=== PATIENT | female | born 1970 | race Caucasian/White ===

== ENCOUNTER → 2024-05-28 07:29 | Outpatient (REF) | payer OTHER, SELFPAY | LOC: EMG 07:29 | PROVIDERS: ATTENDING PHYSICIAN Student in an Organized Health Care Education/Training Program | DX: R20.9 Unspecified disturbances of skin sensation (principal); R20.0 Anesthesia of skin; G62.9 Polyneuropathy, unspecified | CPT/HCPCS: 95886; 95911 ==

== ENCOUNTER → 2024-07-13 07:46 | Outpatient (REF) | payer OTHER, SELFPAY | LOC: MRI 3T 07:46 | PROVIDERS: ATTENDING PHYSICIAN Student in an Organized Health Care Education/Training Program | DX: G62.9 Polyneuropathy, unspecified (principal); Z82.0 Family history of epilepsy and other diseases of the nervous system | CPT/HCPCS: 70553; A9575 ==

== ENCOUNTER → 2024-08-06 08:34 | Outpatient (REF) | payer OTHER, SELFPAY | LOC: MRI 3T 08:34 | PROVIDERS: ATTENDING PHYSICIAN Student in an Organized Health Care Education/Training Program | DX: G62.9 Polyneuropathy, unspecified (principal); Z82.0 Family history of epilepsy and other diseases of the nervous system | CPT/HCPCS: 72158; A9575 ==

== ENCOUNTER 2024-08-23 19:47 | Inpatient (IN) | payer OTHER, SELFPAY ==
[2024-08-23] VITALS (10 sets, daily range): BP systolic 138–163; BP diastolic 62–98; BMI 28.7
[2024-08-23 12:50] LABS: % Eosinophils 4.3 % (0-6); % Immature Granulocytes 0.2 % (0-0.5); % Lymphocytes 34.2 % (20.5-51.1); % Monocytes 4.6 % (1.7-9.3); % Neutrophils 55.7 % (42.2-75.2); Absolute Basophils 0.1 10^3/uL (0-0.2); Absolute Eosinophils 0.3 10^3/uL (0-0.7); Absolute Monocytes 0.3 10^3/uL (0.1-0.6); Absolute Neutrophils 3.3 10^3/uL (1.4-6.5); Hematocrit 37.9 % (37.0-47.0); Hemoglobin 13.6 g/dL (12.0-16.0); Mean Corp Hgb Conc. 35.9 g/dL (33.0-37.0); Mean Corpuscular Hgb 30.3 pg (27.0-31.0); Mean Corpuscular Volume 84.4 fL (81.0-99.0); Mean Platelet Volume 9.4 fL (7.4-10.4); Nucleated Red Blood Cells % 0 %; Platelet Count 236 10^3/uL (130-400); Red Blood Cell Count 4.49 10^6/uL (4.20-5.40); Red Cell Dist. Width 12.6 % (11.5-14.5); White Blood Cell Count 5.9 10^3/uL (4.8-10.8)
[2024-08-23 13:00] LABS: HCG, Serum Qualitative Screen Negative
[2024-08-23 13:03] LABS: ALT (SGPT) 22 U/L (0-35); AST (SGOT) 26 U/L (14-36); Albumin 4.5 g/dl (3.5-5.0); Alkaline Phosphatase 88 U/L (38-126); Blood Urea Nitrogen 17 mg/dl (7-17); Calcium 9.2 mg/dl (8.4-10.2); Carbon Dioxide 27 mmol/L (22-30); Chloride 99 mmol/L (98-107); Glucose 161 mg/dl (70-99); Potassium 4.1 mmol/L (3.5-5.1); Sodium 135 mmol/L (135-145); Total Bilirubin 0.3 mg/dl (0.2-1.3); Total Protein 7.5 g/dl (6.3-8.2); eGFR > 60.00
[2024-08-23 13:17] LABS: Troponin I 0.038 ng/ml
[2024-08-23] MEDS: LOW STRENGTH ASPIRIN 324 MG PO (14:02)
[2024-08-23 14:04] LABS: INR 0.83; PT 11.9 Sec (11.4-14.6)
--- NOTE | 2024-08-23 14:14 | ED.GENMED ---
History of Present Illness
General
Chief Complaint: Chest Pain
Time Seen by Provider: 08/23/24 13:40
History of Present Illness
History of Present Illness:
54-year-old female without significant past medical history presenting to the emergency department for acute onset of chest pain. Patient reports that around 1145 this morning she was at work at her desk and had acute onset of midsternal chest
pain, sharp in quality. Denies any exertional component. Denies any diaphoresis, did have some nausea. Denies any difficulty breathing. Denies any personal history of cardiac disease, however does note family history of cardiomyopathy, brother
passed at an age of 35. She reports that the pain has slightly improved since onset. Denies ever having symptoms like this in the past. Denies abdominal pain or GI symptoms. Denies additional acute medical complaints.
Past History
Past History
ED Past Medical History: None
ED Past Surgical History: None
Phy Exam
Physical Exam
Physical Exam:
General: Well-appearing, no clinical signs of dehydration, nontoxic and in no acute distress
HEENT: protecting airway
Neck: appears supple
CV: Normal heart rate, regular rhythm
Resp: No accessory muscle use, no increased work of breathing
Abd: Soft and non-distended, no tenderness to palpation
Extremities: No deformities, no swelling
Neuro: alert, no focal neurologic deficit
: deferred
Rectal: deferred
Psych: Normal affect
Skin: Intact
Scores
Heart Score for Chest Pain Patients
STEMI patient?: No
History: Highly Suspicious
ECG: Nonspecific Repolarization
Age: >45 - <65 years
Risk Factors: 1 or 2 Risk Factors
Troponin: >/= 3 x Normal Limit
Heart Score for Chest Pain Patients: 7
Heart Score Risk: 72.7 % MACE over next 6 weeks
Course
Orders/Labs/Results
Orders:
Orders
08/23/24 12:12
EKG [Electrocardiogram (*1)] Urgent
Reason for Study: Chest Pain
EKG- Treatment ONCE
08/23/24 12:29
Test Result ONCE
08/23/24 12:36
Complete Blood Count/With Diff Urgent
Comprehensive Metabolic Panel Urgent
HCG, Serum Qualitative Screen Urgent
Prothrombin Time Urgent
Troponin I Urgent
08/23/24 13:42
Electrocardiogram (*1) Urgent
Reason for Study: Chest Pain
EKG- Treatment ONCE
08/23/24 13:51
Aspirin Chewable [Low Strength Aspirin] 324 mg PO NOW STA
08/23/24 Dinner
Cholesterol Lowering
Cholesterol Lowering: Sodium, 2 Gram
08/23/24 15:13
Troponin I Urgent
08/23/24 15:48
Electrocardiogram (*1) Urgent
Reason for Study: Chest Pain
EKG- Treatment ONCE
08/23/24 15:58
Heparin 4,000 units IV NOW STA
Nursing to Place Non Medication Order As Directed
Physician Order: PTT 6 hours after initial start of Heparin infusion
Above order entered?: Yes
08/23/24 16:00
Heparin 05301 Units/250 ml 25,000 units in 250 ml IV PER PROTOCOL
Weight to be used for heparin protocol in kilograms (kg):: 80.7
Protocol:: Cardiac Tx/Acute Coronary
PTT Goal Range to be used:: PTT 73 to 111 seconds
Order type:: Initial
INITIAL Infusion Dose (UNITS/KG/hr) & then follow protocol:: 12 units/kg/hr
Infusion Dose in UNITS/hr & then follow protocol (UNITS/hr):: 950
INFUSION RATE in mL/hr & then follow protocol (mL/hr):: 9.5
PTT less than or equal to 64 seconds:: Increase rate by 200 units/hr (+ 2 mL/hr)
PTT 64.1 to 72.9 seconds:: Increase rate by 100 units/hr (+ 1 mL/hr)
PTT 73 to 111 seconds:: Target Range. No change in rate.
PTT 111.1 to 130.9 seconds:: Decrease rate by 100 units/hr (- 1 mL/hr)
PTT 131 to 199.9 seconds:: HOLD for 1 hr. Then decrease rate by 200 units/hr (- 2 mL/hr)
PTT greater than or equal to 200 seconds:: HOLD for 2 hrs & Notify Provider. Then decrease by 200 units/hr (-
2 mL/hr)
Lab follow-up:: Each change, PTT q6h until 2 consecutive are therapeutic. Then PTT
daily.
08/23/24 16:06
PTT Urgent
Comment: Obtain baseline before beginning heparin infusion if not already collected
08/23/24 16:20
Metoprolol [Lopressor] 25 mg PO NOW STA
08/23/24 16:53
Electrocardiogram (*1) Urgent
Reason for Study: Chest Pain
08/23/24 18:00
Atorvastatin [Lipitor] 80 mg PO QPM
08/23/24 18:18
Admit/Transfer Patient As Directed
Co-Sign Provider:
Level of Care: Inpatient admission
Assign to:: IVU
Physician / Group: [email or web address]
Diagnosis: NSTEMI , HTN urgency
Reason for Hospitalization: NSTEMI, HTN urgency
Expected length of stay greater than two midnights?: Yes
ELOS- Estimated Length of Stay in days: 3
I certify the patient meets the requirements for IP care: Yes
08/23/24 18:21
Code Status As Directed
Resuscitation Status: Full Code
08/23/24 19:00
Electrocardiogram (*1) Routine
Reason for Study: Chest Pain
Cardiology Consult: Jah Palmer
Troponin I Q6H
08/23/24 20:25
Electrocardiogram (*1) Q6H
Reason for Study: Chest Pain
Comment: at admission and Q3H for total of 3, to be done with each troponin
Alprazolam [Xanax] 0.5 mg PO HSPRN PRN
08/23/24 20:25
CARDIOLOGY CONSULT Routine
Consulting Provider: Jah Palmer
Was physician already notified: Yes
Reason for consult: NSTEMI , HTN urgency
Glycohemoglobin (HgbA1c) Routine
Activity As Directed
Activity Level: With Assistance
INT (Intravenous Needle Therapy) As Directed
Comment: maintain peripheral IV access
Intake/ Output As Directed
Frequency: Per unit guidelines
Vital Signs As Directed
Frequency: q4h
Weight As Directed
Frequency: Daily
08/23/24 22:19
PTT Urgent
08/23/24 23:59
Metoprolol [Lopressor] 25 mg PO Q6
08/24/24 01:00
Troponin I Q6H
08/24/24 02:25
Electrocardiogram (*1) Q6H
Reason for Study: Chest Pain
Comment: at admission and Q3H for total of 3, to be done with each troponin
08/24/24 06:00
Echo 2D MMode Color/Doppler Routine
Reason for Study: chest pain, elevated Troponin
Cardiology Consult: Jah Palmer
Comment: 138/62 no prior echo
Electrocardiogram (*1) IN AM
Reason for Study: Chest Pain
Cardiology Consult: Jah Palmer
NPO
Allow oral meds: Yes
Allow clear liquids: Sips of Clears
NPO with Ice Chips: Yes
Cardiovascular Evaluation IN AM
Complete Blood Count/No Diff IN AM
Comprehensive Metabolic Panel IN AM
08/24/24 07:00
Troponin I Q6H
08/24/24 08:00
Aspirin Chewable [Low Strength Aspirin] 81 mg PO DAILY
08/24/24 08:25
Electrocardiogram (*1) Q6H
Reason for Study: Chest Pain
Comment: at admission and Q3H for total of 3, to be done with each troponin
Abnormal Lab Results
08/23/24 08/23/24 08/23/24
12:36 15:13 19:00
Glucose 161 H mg/dl
(70-99)
Troponin I 0.038 H* ng/ml 7.210 H* D ng/ml 25.700 H* D ng/ml
08/23/24 12:36
08/23/24 12:36
Vital Signs
Initial and Last Documented VS:
Initial Vital Signs
Temp Pulse Resp BP Pulse Ox
97.4 F 85 18 163/98 100
08/23/24 12:23 08/23/24 12:23 08/23/24 12:23 08/23/24 12:23 08/23/24 12:23
Last Documented Vital Signs
Temp Pulse Resp BP Pulse Ox
98.4 F 99 20 142/83 98
08/23/24 20:31 08/23/24 20:00 08/23/24 20:31 08/23/24 18:55 08/23/24 20:31
MDM/Problems Addressed
MDM/Problems Addressed:
54-year-old female with no significant past medical history presenting to the emergency department for acute onset of chest pain. Vital signs on arrival significant for high blood pressure.
On exam patient is resting comfortably, no acute distress or discomfort. Unremarkable cardiac and pulmonary exam EKG reviewed, mild ST elevation in V1 and V2 without STEMI criteria. Patient does have concerning family history of cardiac disease.
Patient had screening laboratory analysis prior to my assessment, and troponin slightly elevated. This reason we will discuss with cardiology. Will administer aspirin.
14:00 -discussed with cardiology, will see and evaluate.
15:50 -cardiology to bedside and patient's troponin has since elevated to now 7, concern for acute coronary event. Will start heparin with plan for admission and likely catheterization
*EKG
Interpreted by ED Provider?: Yes
EKG Intrepretation Date: 08/23/24
EKG Intrepretation Time: 14:16
Interpretation: abnormal
Comparison EKG: no comparison EKG present
Heart Rate: 92
Rate: normal
Rhythm: sinus
Mcdonough: normal axis
Interval: normal interval
QRS Pattern: normal QRS
Ischemia: non-specific ST changes
*Critical Care Note
Total Time (30-74mins, 75-104mins- exclusive of procedures): 37
comment:
The high probability of a clinically significant, sudden or life threatening deterioration of the cardiovascular system(s) required my full and direct attention, intervention and personal management. The aggregate critical care time was 37 minutes.
This time is in addition to time spent performing reported procedures but includes the following:
[x] Data Review and interpretation
[x] Patient assessment and monitoring of vital signs
[x] Documentation
[x] Medication orders and management
ED Attending Note
-
Portions of this chart may have been created with voice recognition software.� Occasional wrong word or��sound alike� substitutions may have occurred due to the inherent limitations of voice recognition software.
Discharge Plan
Departure
Patient Disposition: Admit
Date of Disposition: 08/23/24
Time of Disposition: 15:58
Presentation/result/management discussed w/ accepting MD/DO: Hospitalist
Patient with high blood pressure during this ER visit?: Yes
Condition: Fair
Discharge Problem:
Acute non-ST elevation myocardial infarction (NSTEMI), Chest pain
Interventions
Interventions:
*Risk Screen - Suicide Last Done: 08/23/24 12:23
*General Assessment Last Done: 08/23/24 12:23
*Neglect/Abuse Screening Last Done: 08/23/24 12:23
ED- Fall Risk Assessment Last Done: 08/23/24 20:14
*ED COVID-19 Vaccine History Last Done: 08/23/24 20:14
*Nursing Disposition Last Done: 08/23/24 20:14
ED- Cardiac Assessment Last Done: 08/23/24 13:40
Discharge Date and Time
Discharge Date/Time: 08/23/24 20:15
--- NOTE | 2024-08-23 15:56 | CON.CAR ---
Addendum entered and electronically signed by Jah Palmer MD 08/23/24 16:30:
I saw and examined the patient.
The PAINTER ROUGH or PA's note was reviewed and I agree with the note.
Comment: General: Well developed, well nourished in NAD.
Neck: Supple, no JVD, HJR, carotids +2 B/L, no bruits bilaterally.
Heart: Non displaced PMI, RRR, no murmurs, No S3, S4, no rubs.
Lungs: Clear to auscultation bilaterally, no wheeze, rhonchi, rubs bilaterally,
normal expiratory phase.
Abdomen: Normal bowel sounds, soft, non-tender, non-distended.
Extremities: No clubbing, cyanosis or edema bilaterally.
Neuro: Grossly nonfocal, awake, alert and oriented x3.
Nivia has no significant past medical history. She does have a family history of cardiomyopathy and brother unexpectedly at age 35. She presents with complaints of chest discomfort. She was sitting at her computer and developed a sharp
discomfort. It lasted approximately 30 minutes and has resolved. ECG with lateral ST changes which appears to improved. Initial troponin was 0.038 and repeat was 7.
She will has ruled in for non-STEMI. She is pain-free. Will start IV heparin. Will start Lopressor and Lipitor. Will check echocardiogram. Plan on cardiac catheterization on 08/24/2024.
Original Note:
Consultation
Consultation Request
Date/Time Consultation Requested: 08/23/24
Date/Time Consultation Performed: 08/23/24
Requesting Provider: Dr. Vazquez
Performing Provider: Dr. Palmer
Reason for Consultation: Chest pain, elevated Troponin
Medical History
-
History of Present Illness:
Patient came to [facility] today with chest pain and is being admitted with an elevated Troponin and cardiology has been consulted. Patient has a FH of CM and says that she is the youngest in her family and that in her 20s her oldest brother in his
sleep at age 35 and on autopsy he was diagnosed with CM. Patient had echo and stress test while she was living in [place] at that time and reports testing was normal. Patient does not have significant PMH otherwise aside from being overweight and
she is working with Dr. Vu for weight loss. Patient has also been seeing her PCP for foot tingling and had concerns about MS because her sister was just diagnosed with MS. Patient had an outpatient MRI in June and is waiting to see Neuro at
[place] 09/04/24. She says that she was not stressed and was at home today when she had sudden onset substernal chest pain that did not radiate and lasted 30 min in total. Chest pain relieved without specific intervention upon arrival to the ER. No
recurrence of pain. BP was 163/98 in the ER and has only improved to 143/81 in the last 3 hours. Patient is normally well controlled with BP 104/62 04/27/24 and then 108/70 06/06/24 upon review of PCP visits in [facility]. Initial Troponin was 0.038.
Inferolateral ST changes on ECG.
PMH:
FH CM, brother unexpectedly at age 35
Paresthesias with abnormal spine MRI
FH multiple sclerosis, sister
Past Medical History
Past Medical History: Other (in HPI)
Past Surgical History:
Social History
Tobacco: Former Smoker
Alcohol: Other (4-5 nights a week, a bit more with the holidays recently)
Drug: None
Personal:
Living: With Family
Employment: Employed
Family History
Family History: Hypertension and Other (patient is the youngest of 4, when she was in her 20's her oldest brother in his sleep at age 35 and was diagnosed as CM post-mortem)
Allergies / Home Medications
Allergy/AdvReac Type Severity Reaction Status Date / Time
No Known Allergies Allergy Unverified 02/09/20 19:24
�Medication �Instructions �Recorded �Confirmed �Type
alprazolam 0.5 mg tablet (Xanax) 0.5 mg PO HSPRN PRN sleep 08/23/24 08/23/24 History
cholecalciferol (vitamin D3) 25 25 mcg PO DAILY 08/23/24 08/23/24 History
mcg (1,000 unit) tablet (Vitamin
D3)
naproxen sodium 220 mg tablet 220 mg PO BIDPRN PRN mild pain 08/23/24 08/23/24 History
(Aleve)
therapeutic multivitamin 1 tab PO DAILY 08/23/24 08/23/24 History
tirzepatide (weight loss) 10 10 mg SC MO 08/23/24 08/23/24 History
mg/0.5 mL subcutaneous pen
injector (Zepbound)
Review of Systems
-
History Source: Patient
All other systems: Negative unless noted
Physical Exam
Vital Signs
Temp Pulse Resp BP Pulse Ox
97.4 F 99 16 143/81 98
08/23/24 12:23 08/23/24 15:30 08/23/24 15:30 08/23/24 15:00 08/23/24 15:30
GEN: NAD, AAOx3
HEENT: EOMI, MMM
LUNGS: RA. CTA B/L, no wheezes/rales
CV: SR on tele. Reg, S1/S2, no murmur
ABD: soft, BS+, NT, ND
EXT: No clubbing, cyanosis, lesions or edema B/L
NEURO: Gross non-focal
SKIN: Warm, dry and pink. No rash
Lab Results
08/23/24 12:36
08/23/24 12:36
Troponin I 7.210 ng/ml H* D 08/23/24 15:13
Impression / Plan
-
PCP: Dr. Chairez
Cardiology: None
Impression:
Admitted with chest pain 08/23/24
Elevated Troponin, possible NSTEMI
HTN urgency
FH CM, brother unexpectedly at age 35
Paresthesias with abnormal spine MRI
FH multiple sclerosis, sister
Echo 08/23/24: Study pending
Plan:
-Patient came to [facility] today with chest pain and is being admitted with an elevated Troponin and cardiology has been consulted. Patient has a FH of CM and says that she is the youngest in her family and that in her 20s her oldest brother in his
sleep at age 35 and on autopsy he was diagnosed with CM. Patient had echo and stress test while she was living in [place] at that time and reports testing was normal. Patient does not have significant PMH otherwise aside from being overweight and
she is working with Dr. Vu for weight loss. Patient has also been seeing her PCP for foot tingling and had concerns about MS because her sister was just diagnosed with MS. Patient had an outpatient MRI in June and is waiting to see Neuro at
[place] 09/04/24. She says that she was not stressed and was at home today when she had sudden onset substernal chest pain that did not radiate and lasted 30 min in total. Chest pain relieved without specific intervention upon arrival to the ER. No
recurrence of pain. BP was 163/98 in the ER and has only improved to 143/81 in the last 3 hours. Patient is normally well controlled with BP 104/62 04/27/24 and then 108/70 06/06/24 upon review of PCP visits in [facility]. Initial Troponin was 0.038.
Inferolateral ST changes on ECG.
-ECG reviewed by me with SR and inferolateral ST changes on initial ECG in ER that improved on subsequent ECGs.
-Initial Troponin 0.038, second Troponin ordered by me is higher at 7.21. Chest pain free
-Start Heparin gtt
-Aspirin 324 mg chewable given in ER
-Check echo, ordered by me
-Check CVE in AM
-Start atorvastatin 80 mg daily tonight
-Start Lopressor 25 mg PO q 6 hours
-Patient does not have a h/o HTN, but BP has been persistently higher for her in the ER.
[2024-08-23] MEDS: HEPARIN 4000 UNITS IV (16:18)
[2024-08-23] MEDS: HEPARIN 25000 UNITS/250 ML IV (16:19)
[2024-08-23 16:35] LABS: APTT 25.8 Sec (23.4-35.0)
[2024-08-23] MEDS: LOPRESSOR 25 MG PO ×2 (16:52→23:19)
--- NOTE | 2024-08-23 18:11 | HPS.HSE ---
Family Physician
-
Family Physician: Zoe Chairez MD
Chief Complaint
-
CP
History of Present Illness
HPI
54F No significant PMHX seen at ER for CP;
- acute onset os substernal CP
- POS FHX heart disease
- EKG has some subtle changes and trop initialy 0.038.
- Had her seen by cardiology, recommended admission from trop trending.
- Trop is now 7 so starting heparin.
- Repeated the EKG 3 times without interval changes.
Medical History
Past Medical History
Past Medical History: Reports None
Past Surgical History: Reports None
Social History
Tobacco: Former Smoker
Alcohol: Other (4-5 nights a week, a bit more with the holidays recently))
Drug: None
Personal:
Living: With Family
Family History
Family History: Other (Hypertension and Other (patient is the youngest of 4, when she was in her 20's her oldest brother in his sleep at age 35 and was diagnosed as CM post-mortem))
Allergies / Home Medications
Allergies reflects when Allergies were last updated in [facility].
Home Medications with original date entered in [facility]
Allergy/Medication List:
Allergies
Allergy/AdvReac Type Severity Reaction Status Date / Time
No Known Allergies Allergy Unverified 02/09/20 19:24
Home Medications
alprazolam 0.5 mg tablet (Xanax) 0.5 mg PO HSPRN PRN sleep 08/23/24
cholecalciferol (vitamin D3) 25 mcg (1,000 unit) tablet (Vitamin D3) 25 mcg PO DAILY 08/23/24
naproxen sodium 220 mg tablet (Aleve) 220 mg PO BIDPRN PRN mild pain 08/23/24
therapeutic multivitamin 1 tab PO DAILY 08/23/24
tirzepatide (weight loss) 10 mg/0.5 mL subcutaneous pen injector (Zepbound) 10 mg SC MO 08/23/24
Review of Systems
-
Constitutional: Reports No Symptoms
EENT: Reports No Symptoms
Respiratory: Reports No Symptoms
Cardiac: Reports Chest Pain
Abdomen/GI: Reports No Symptoms
: Reports No Symptoms
Musculoskeletal: Reports No Symptoms
Skin: Reports No Symptoms
Neurological: Reports No Symptoms
Endocrine: Reports No Symptoms
Hematologic/Lymphatic: Reports No Symptoms
Psych: Reports No Symptoms
Physical Exam
Vital Signs
Vital Signs
Temp Pulse Resp BP Pulse Ox
97.4 F 109 23 139/84 99
08/23/24 12:23 08/23/24 17:30 08/23/24 17:30 08/23/24 17:00 08/23/24 17:30
Physical Exam
General: Well Developed, Well Nourished and No Apparent Distress
HEENT: NormoCephalic, Moist mucous membranes and Atraumatic
Respiratory: Clear
Cardiac: S1/S2 and Regular Rhythm; No Murmur or Rub
GI: Soft, Non Tender, Non Distended and Normal Bowel Sounds; No Organomegaly
Rectal: Deferred by Provider
Musculoskeletal: No Clubbing, No Cyanosis and No Edema
Skin: No Rash
Neuro: Nonfocal/grossly intact
Laboratory Results
-
08/23/24 12:36
08/23/24 12:36
Laboratory Results
PT 11.9 Sec (11.4-14.6) 08/23/24 12:36
INR 0.83 08/23/24 12:36
APTT 25.8 Sec (23.4-35.0) 08/23/24 16:06
Total Bilirubin 0.3 mg/dl (0.2-1.3) 08/23/24 12:36
AST 26 U/L (14-36) 08/23/24 12:36
ALT 22 U/L (0-35) 08/23/24 12:36
Alkaline Phosphatase 88 U/L (38-126) 08/23/24 12:36
Troponin I 7.210 ng/ml H* D 08/23/24 15:13
Data Reviewed
-
Medical Tests (Nuc Med, Echo, EKG etc): Report Reviewed by me
Lab Data: Labs Reviewed by me
Impression/Plan
-
Vital Signs
Temp Pulse Resp BP Pulse Ox
97.4 F 109 23 139/84 99
08/23/24 12:23 08/23/24 17:30 08/23/24 17:30 08/23/24 17:00 08/23/24 17:30
Abnormal Lab Results
08/23/24 08/23/24
12:36 15:13
Glucose 161 H
Troponin I 0.038 H* 7.210 H* D
ASSESSMENT & PLAN
Abrupt onset of CP while sitting at her computer with elevated Troponin presumed NSTEMI
First ECG with inferolateral ST changes then no subsequent interval cages in next 2 EKGs
Initial troponin was 0.038 and repeat was 7.
POS FHX of cardiomyopathy: brother unexpectedly at age 35
Of note: Patient had echo and stress test while she was living in [place] at that time and reports testing was normal.
- 08/23/24 pending Echo 08/23/24
- agree with Heparin gtt
- Aspirin 324 mg chewable given in ER
- NPO after MN
- CVE in AM
- Card started on atorvastatin 80 mg HS, Lopressor 25 mg PO q 6 hours
- [facility] Card consulted
Coexisting HTN urgency: improved, Initial BP 163/98 @ ER then improved to 143/81 in the last 3 hours.
No prior HX HTN
- cont Lopressor q6h
- add IV Hydralazine PRN for SBP > 165, DBP > 110
DVT Px: Heparin gtt
Full code
IP TLM
[2024-08-23] MEDS: LIPITOR 80 MG PO (18:24)
--- NOTE | 2024-08-23 21:22 | W.PN.UPDATE ---
Update Note
Progress Note Update
[facility] cardiology Shira Carrero MD updated. Trop 25.7 without CP and EKG unchanged from previous.
[2024-08-23 23:41] LABS: APTT 52.3 Sec (23.4-35.0)
[2024-08-24] VITALS (19 sets, daily range): BP systolic 98–144; BP diastolic 70–129; BMI 27.8
[2024-08-24] MEDS: LOPRESSOR PO (00:08)
[2024-08-24] MEDS: LOPRESSOR 25 MG PO ×2 (05:33→11:45)
[2024-08-24 06:00] LABS: Hematocrit 37.8 % (37.0-47.0); Hemoglobin 13.6 g/dL (12.0-16.0); Mean Corpuscular Hgb 30.4 pg (27.0-31.0); Mean Corpuscular Volume 84.4 fL (81.0-99.0); Mean Platelet Volume 9.7 fL (7.4-10.4); Platelet Count 256 10^3/uL (130-400); Red Blood Cell Count 4.48 10^6/uL (4.20-5.40); Red Cell Dist. Width 12.5 % (11.5-14.5); White Blood Cell Count 7.8 10^3/uL (4.8-10.8)
--- NOTE | 2024-08-24 06:00 | PTCARENOTE ---
Pt received as admission from ED. NSR on tele with HR 80s. Pt with complaints of intermittent mild pain on left side of chest. Pt states she is unable to describe the type of pain, however each episode only lasts a few minutes and does not
correlate with activity. EKGs and troponins done per orders. Heparin gtt currently infusing at 1350units/hr. Pt ambulating independently in room without difficulty. Plan of care discussed and pt remains NPO since midnight for cardiac cath today.
Call [facility] within reach.
[2024-08-24 06:17] LABS: ALT (SGPT) 29 U/L (0-35); AST (SGOT) 102 U/L (14-36); Albumin 4.2 g/dl (3.5-5.0); Alkaline Phosphatase 78 U/L (38-126); Blood Urea Nitrogen 12 mg/dl (7-17); Calcium 9.2 mg/dl (8.4-10.2); Carbon Dioxide 25 mmol/L (22-30); Chloride 103 mmol/L (98-107); Estimated Creatinine Clearance 99 ml/min; Glucose 104 mg/dl (70-99); HDL Cholesterol 62 mg/dl; LDL Cholesterol, Calculated 122 mg/dl; Sodium 136 mmol/L (135-145); Total Bilirubin 0.7 mg/dl (0.2-1.3); Total Cholesterol 221 mg/dl (50-199); Triglyceride 185 mg/dl (10-149); Very Low Density Lipoprotein 37 mg/dl (0-30); eGFR > 60.00
[2024-08-24 06:27] LABS: APTT 47.3 Sec (23.4-35.0)
[2024-08-24] MEDS: LOW STRENGTH ASPIRIN 81 MG PO (08:56)
[2024-08-24] MEDS: VITAMIN B1 100 MG PO ×2 (10:02→20:03)
[2024-08-24] MEDS: PROTONIX 40 MG PO (10:02)
--- NOTE | 2024-08-24 10:20 | W.PN.HOSP.TC ---
Today's Communication/Plan
-
cath
Assessment / Plan
Assessment / Plan
54-year-old female with chest pain. No chest pain this morning
CVS: S1-S2 normal
Chest: CTA B/L
Abdomen: Soft, NT / Bowel sounds present
Extremities: No edema
# Non-STEMI
Inferolateral ST changes on the EKG
Troponin peaked to 23
Aspirin, heparin drip, atorvastatin, Lopressor
ECHO
Cardiac cath today
Cardiology consulted
Family history of cardiomyopathy Brother unexpectedly at age 35
# Hypertension with urgency
Continue Lopressor and as needed hydralazine
# Anxiety-as needed Xanax
# Obesity per BMI
# Horseshoe kidney
# Diverticulosis
# Degenerative disc disease L4-L5 L5-S1
# Being worked up for white matter lesions in the brain. Patient is following up with [place] neurology
# Alcohol use 4-5 nights a week more with holidays. Add PPI, thiamine. Watch for withdrawal
# DVT prophylaxis-heparin drip
# Full code
Discussed with nursing
Anticipated Discharge: Within 24 hours
Subjective/Interval History
-
Date of Service: August 24, 2024
Objective Data
-
Labs:
Laboratory Results
08/23/24 08/24/24 08/24/24
23:15 05:39 12:35
WBC 7.8
Hgb 13.6
Hct 37.8
Plt Count 256
APTT 52.3 H 47.3 H Pending
Sodium 136
Potassium 4.0
Chloride 103
Carbon Dioxide 25
BUN 12
Creatinine 0.7
Glucose 104 H
Calcium 9.2
Total Bilirubin 0.7
AST 102 H
ALT 29
Alkaline Phosphatase 78
Vital Signs:
Vital Signs
Temp Pulse Resp BP Pulse Ox
98.5 F 85 20 98/79 98
08/24/24 07:44 08/24/24 10:02 08/24/24 07:44 08/24/24 10:02 08/24/24 10:02
I&O
08/23/24 08/24/24 08/25/24
06:59 06:59 06:59
Intake Total 360 / 360
Balance 360 / 360
--- NOTE | 2024-08-24 11:24 | CM ---
Chart reviewed. Patient is independent of ADLS, lives with her in a [address], 1 [address], 0 DME. Plan is for the patient to return home. CM to follow
--- NOTE | 2024-08-24 11:52 | ITS.CL.CATH ---
Spout Liner Helper - Catheterization
Cardiac Catheterization
Procedure Report:
LEFT HEART CATHETERIZATION AND CORONARY INTERVENTION
Date of Procedure: August 24, 2024
Referring: Dr. Jah Palmer
PROCEDURES:
1. Left heart catheterization, coronary angiogram.
2. Ultrasound-guided access.
3. Successful percutaneous coronary artery intervention of 70-80 percent hazy mid LAD stenosis with one 2.5 x 15 mm Medtronic Marquette drug-eluting stent, postdilated with a 2.5 x 12 mm NC balloon at 16 deuce with an excellent angiographic and IVUS based
result.
4. Intravascular ultrasound (IVUS).
INDICATION: NSTEMI
ACCESS: Right radial artery, 6 Slovenian sheath, under ultrasound guidance
HEMODYNAMICS : (mmHg)
AO (s/d) : 117/80
LV (s/d) : 107/3
LVEDP : 14
CORONARY FINDINGS
DOMINANCE: Right
LEFT MAIN: The left main artery is a large-caliber vessel which gives rise to the left anterior descending artery and the left circumflex artery. There is minimal luminal irregularities.
LEFT ANTERIOR DESCENDING: The left anterior descending artery is a medium caliber vessel which gives rise to 1 major branching diagonal branch as it courses to the anterior interventricular groove and wraps around the apex. There is a hazy 70 to
80% mid LAD stenosis just distal to the diagonal branch which is thought to be the culprit of presenting ACS decision was made to proceed with percutaneous intervention.
CIRCUMFLEX: The left circumflex artery is a medium caliber vessel which gives rise to 1 very small caliber obtuse marginal branch and 2 are small caliber left posterolateral branches. There is minimal luminal irregularities.
RIGHT CORONARY ARTERY: The right coronary artery is a large-caliber, dominant vessel which gives rise to the right posterior descending artery and the right posterolateral system. There is minimal luminal irregularities.
CORONARY INTERVENTION: Additional heparin was given to maintain a therapeutic ACT throughout the case. The left coronary artery was successfully engaged using a 5 Slovenian EBU 3.75 guide catheter. We initially had tried multiple times bringing in a
6 Slovenian EBU 3.75 guide catheter however given significant spasm in the right upper extremity, we could not successfully advance this catheter despite adequate sedation and vasodilators. Through the 5 Slovenian EBU 3.75 we navigated the lesion using a
190 cm 0.014' BMW coronary wire which was parked in the distal LAD. We predilated lesion using a 2.0 x 12 mm semicompliant balloon at 14 deuce with good expansion. We subsequently stented the lesion using a 2.5 x 15 mm Medtronic Marquette drug-eluting
stent which was postdilated using a 2.5 x 12 mm NC balloon at 16 deuce with an excellent angiographic result. Post PCI IVUS imaging showed a well apposed and well-expanded stent without evidence of proximal or distal stent edge dissections. Patient
tolerated the procedure well. She was loaded with 60 mg of prasugrel at the end of the case. No acute complications.
SEDATION: 54 minutes of procedural sedation was utilized. An independent medical affairs specialist was present to assist with and help manage the patient's level of consciousness and physiologic status.
RADIATION SUMMARY: Fluoro Time (min): 9.4, Dose (mGy): 486.17, DAP (Gy.cm2) : 35.5
Closure Device: Vascular band over right radial artery, 10 cc of air.
CONCLUSIONS
1. Successful IVUS guided percutaneous coronary artery intervention of 70-80 percent hazy mid LAD stenosis with one 2.5 x 15 mm Medtronic Rodolfo drug-eluting stent, postdilated with a 2.5 x 12 mm NC balloon at 16 deuce with an excellent angiographic and
IVUS based result.
2. High normal LVEDP at 14 mmHg.
3. No obstructive coronary artery disease otherwise.
RECOMMENDATIONS
1. Uninterrupted dual antiplatelet therapy in the setting of an NSTEMI with daily baby aspirin and prasugrel 10 mg daily along with high intensity statin and beta-truman as tolerated.
2. Echocardiogram reviewed showing overall preserved LV systolic function with wall motion abnormalities in the LAD territory.
3. Aggressive management of cardiovascular risk factors.
4. Wean radial band per protocol.
5. Eventual referral for outpatient cardiac rehab.
Copy to: Dr. Jah Palmer
Lydia Melgar MD, FACC, [facility]
[2024-08-24 12:41] LABS: Glycohemoglobin (HgbA1c) 4.7 % (4.0-5.6)
[2024-08-24 12:54] LABS: ACT-LR - POC 247 Seconds (116-155)
[2024-08-24 13:05] LABS: ACT-LR - POC 268 Seconds (116-155)
[2024-08-24 13:18] LABS: ACT-LR - POC 298 Seconds (116-155)
[2024-08-24 13:34] LABS: ACT-LR - POC 322 Seconds (116-155)
[2024-08-24] MEDS: EFFIENT 60 MG PO (14:25)
--- NOTE | 2024-08-24 15:11 | CM ---
Pricing on Effient 10mg daily is covered for the patient at $30 for a 30 day supply
--- NOTE | 2024-08-24 16:22 | PTCARENOTE ---
received post cath, right radial cdi. pt offers no complaints at this time. pt educated on plan of care and pt verbalized understanding. pt is sr on the monitor, hr in the 80s, vss. pt resting in bed comfortably. call trinidad within reach.
[2024-08-24] MEDS: LIPITOR 80 MG PO (18:34)
[2024-08-24] MEDS: TOPROL XL 50 MG PO (20:03)
--- NOTE | 2024-08-24 23:08 | W.PN.CARD.SR ---
Sheath/IABP Sheath Removal
Sheath Removal
Right Arterial Radial:
Site appearance prior to sheath removal: Ecchymotic (mild) and Oozing
Sheath removed by:: Physician household personal assistant (Honorio Koenig)
Time of sheath removal: 22:40
Time hemostasis achieved: 22:50
Site appearance post sheath removal: Ecchymotic and Oozing
Method of Hemostasis Post Sheath Removal: Manual Pressure
Dressing dry and intact?: Yes
Comments: Called to assess oozing site causing delay in removal of TR-Band. Pressure dressing applied to site post manual pressure, can remove in the AM
[2024-08-24] MEDS: XANAX 0.5 MG PO (23:15)
--- NOTE | 2024-08-25 03:49 | PTCARENOTE ---
Pt remains NSR on tele with HR 80s-90s. Denies CP and SOB. TR band in place at beginning of shift. Attempted to remove air per orders however pt continued to ooze from site. DANGELO Neely notified of difficulty weaning TR band throughout
the day due to persistent oozing. PA to bedside to remove TR band and hold manual pressure. Band removed at 2240 and hemostasis achieved at 2250. Pressure dressing in place, site ecchymotic with no hematoma noted. Pt educated on activity
restrictions and to notify RN for bleeding from site, pt verbalizes understanding. Call trinidad within reach.
[2024-08-25 04:27] VITALS: BP 107/78
[2024-08-25 05:08] LABS: Hematocrit 36.8 % (37.0-47.0); Mean Corp Hgb Conc. 35.3 g/dL (33.0-37.0); Mean Corpuscular Hgb 29.9 pg (27.0-31.0); Mean Corpuscular Volume 84.6 fL (81.0-99.0); Mean Platelet Volume 9.5 fL (7.4-10.4); Platelet Count 244 10^3/uL (130-400); Red Blood Cell Count 4.35 10^6/uL (4.20-5.40); Red Cell Dist. Width 12.5 % (11.5-14.5); White Blood Cell Count 6.8 10^3/uL (4.8-10.8)
[2024-08-25 05:37] LABS: Blood Urea Nitrogen 13 mg/dl (7-17); Carbon Dioxide 26 mmol/L (22-30); Chloride 105 mmol/L (98-107); Estimated Creatinine Clearance 87 ml/min; Glucose 98 mg/dl (70-99); HDL Cholesterol 44 mg/dl; LDL Cholesterol, Calculated 103 mg/dl; Potassium 4.2 mmol/L (3.5-5.1); Sodium 138 mmol/L (135-145); Total Cholesterol 182 mg/dl (50-199); Triglyceride 176 mg/dl (10-149); Very Low Density Lipoprotein 35 mg/dl (0-30); eGFR > 60.00
--- NOTE | 2024-08-25 07:59 | PTCARENOTE ---
Received patient this morning resting in bed. Pressure dressing in place right wrist, no bleeding noted, radial pulse is palpable. Patient offers no complaints, still trying to rest, hopeful to go home today.
[2024-08-25 08:03] VITALS: BP 115/60
--- NOTE | 2024-08-25 08:29 | W.PN.CARDCBS ---
Today's Communication / Plan
-
Stable cardiology status for discharge and follow-up will be arranged
Impression / Plan
-
PCP: Dr. Chairez
Cardiology: None
Impression:
Admitted with chest pain 08/23/24
Elevated Troponin, possible NSTEMI
HTN urgency
FH CM, brother unexpectedly at age 35
Paresthesias with abnormal spine MRI
FH multiple sclerosis, sister
Echo 08/24/24: Ejection fraction 45 to 50%, anterior wall and anterior septum severely hypokinetic from base to apex consistent with LAD regional wall motion abnormality
Cardiac catheterization 08/24/2024: 2.5 x 15 mm Medtronic stent of mid LAD
Plan:
No chest pain
Stable cardiology status for discharge
Follow-up will be arranged
PREADMIT NOTE
-Patient came to [facility] today with chest pain and is being admitted with an elevated Troponin and cardiology has been consulted. Patient has a FH of CM and says that she is the youngest in her family and that in her 20s her oldest brother in his
sleep at age 35 and on autopsy he was diagnosed with CM. Patient had echo and stress test while she was living in [place] at that time and reports testing was normal. Patient does not have significant PMH otherwise aside from being overweight and
she is working with Dr. Vu for weight loss. Patient has also been seeing her PCP for foot tingling and had concerns about MS because her sister was just diagnosed with MS. Patient had an outpatient MRI in June and is waiting to see Neuro at
[facility] 09/04/24. She says that she was not stressed and was at home today when she had sudden onset substernal chest pain that did not radiate and lasted 30 min in total. Chest pain relieved without specific intervention upon arrival to the ER. No
recurrence of pain. BP was 163/98 in the ER and has only improved to 143/81 in the last 3 hours. Patient is normally well controlled with BP 104/62 04/27/24 and then 108/70 06/06/24 upon review of PCP visits in [facility]. Initial Troponin was 0.038.
Inferolateral ST changes on ECG.
Progress Note - Vmware Administrator
Subjective
Date of Service: August 25, 2024
No chest pain or shortness of breath
Objective
Labs:
08/25/24 04:36
08/25/24 04:36
Labs
Hgb 13.0 g/dL (12.0-16.0) 08/25/24 04:36
Hct 36.8 % (37.0-47.0) L 08/25/24 04:36
Plt Count 244 10^3/uL (130-400) 08/25/24 04:36
PT 11.9 Sec (11.4-14.6) 08/23/24 12:36
INR 0.83 08/23/24 12:36
APTT Cancelled 08/24/24 12:35
Sodium 138 mmol/L (135-145) 08/25/24 04:36
Potassium 4.2 mmol/L (3.5-5.1) 08/25/24 04:36
BUN 13 mg/dl (7-17) 08/25/24 04:36
Creatinine 0.8 mg/dL (0.6-1.0) 08/25/24 04:36
Glucose 98 mg/dl (70-99) 08/25/24 04:36
Troponins
08/23/24 08/23/24 08/23/24
12:36 15:13 19:00
Troponin I 0.038 H* 7.210 H* D 25.700 H* D
08/23/24 08/23/24 08/23/24
20:25 21:29 23:25
Troponin I Cancelled 23.000 H* Cancelled
08/24/24 08/24/24
01:43 05:39
Troponin I 14.900 H* D 9.140 H* D
Vital Signs and I&O:
Vital Signs
Temp Pulse Resp BP Pulse Ox
98.2 F 83 20 115/60 97
08/25/24 04:34 08/25/24 08:03 08/25/24 04:34 08/25/24 08:03 08/25/24 04:34
Vital Signs
Temp Pulse Resp BP Pulse Ox
98.2 F 83 20 115/60 97
08/25/24 04:34 08/25/24 08:03 08/25/24 04:34 08/25/24 08:03 08/25/24 04:34
Intake & Output
08/23/24 08/24/24 08/25/24 08/26/24
06:59 06:59 06:59 06:59
Intake Total 360 / 360 480 / 480
Balance 360 / 360 480 / 480
Physical Exam
Physical Exam
General: Well developed, well nourished in NAD.
Neck: Supple, no JVD, HJR, carotids +2 B/L, no bruits bilaterally.
Heart: Non displaced PMI, RRR, no murmurs, No S3, S4, no rubs.
Lungs: Clear to auscultation bilaterally, no wheeze, rhonchi, rubs bilaterally,
normal expiratory phase.
Extremities: No clubbing, cyanosis or edema bilaterally.
Neuro: Grossly nonfocal, awake, alert and oriented x3.
[2024-08-25] MEDS: COZAAR 25 MG PO (09:35)
[2024-08-25] MEDS: PROTONIX 40 MG PO (09:35)
[2024-08-25] MEDS: LOW STRENGTH ASPIRIN 81 MG PO (09:35)
[2024-08-25] MEDS: VITAMIN B1 100 MG PO (09:35)
[2024-08-25] MEDS: TOPROL XL 50 MG PO (09:35)
[2024-08-25] MEDS: EFFIENT 10 MG PO (10:16)
--- NOTE | 2024-08-25 10:18 | W.DS.TRANS ---
Addendum entered and electronically signed by Carlita Newsome MD 08/25/24 18:23:
Dictation- [id number]
Original Note:
DC Summary - Assistant Child Care Teacher
-
Discharge Instructions:
Discharge Diagnosis/Procedures NSTEMI, s/p angioplasty and stent to Left
Anterior Descending artery
Hypertension
Diverticulosis
Degenerative disc disease L4-L5 L5-S1
Diet Low Cholesterol,2 Gram Sodium
Activity No strenuous activity
Additional Activity For 1 week
Driving Restrictions No driving for 24 hours
Other Services Cardiac Rehab
Instructions:
Stand-Alone Forms: DC Instructions- Cath/EP Lab
Changes to Home Medications: Yes
Discharge Medications:
DC Medications w/original date entered in [facility]
alprazolam 0.5 mg tablet (Xanax) 0.5 mg PO HSPRN PRN sleep 08/23/24
aspirin 81 mg chewable tablet 81 mg PO DAILY Blood clot prevention/tx #0 tabs 08/25/24
atorvastatin 80 mg tablet 80 mg PO QPM High cholesterol #30 tabs 08/25/24
cholecalciferol (vitamin D3) 25 mcg (1,000 unit) tablet (Vitamin D3) 25 mcg PO DAILY Supplement #0 tabs 08/25/24
famotidine 20 mg tablet (Pepcid) 20 mg PO DAILY Gastrointestinal issue #30 tabs 08/25/24
losartan 25 mg tablet 25 mg PO DAILY Heart disease/condition #30 tabs 08/25/24
metoprolol succinate 50 mg tablet,extended release 24 hr 50 mg PO BID Blood pressure #60 tabs 08/25/24
prasugrel 10 mg tablet 10 mg PO DAILY Blood clot prevention/tx #30 tabs 08/25/24
therapeutic multivitamin 1 tab PO DAILY Supplement #0 tabs 08/25/24
tirzepatide (weight loss) 10 mg/0.5 mL subcutaneous pen injector (Zepbound) 10 mg (0.5 mL) SC MO weight loss #0 mL 08/25/24
Home Medication Changes
new
aspirin 81 mg chewable tablet 81 mg PO DAILY Blood clot prevention/tx #0 tabs 08/25/24
atorvastatin 80 mg tablet 80 mg PO QPM High cholesterol #30 tabs 08/25/24
famotidine 20 mg tablet (Pepcid) 20 mg PO DAILY Gastrointestinal issue #30 tabs 08/25/24
losartan 25 mg tablet 25 mg PO DAILY Heart disease/condition #30 tabs 08/25/24
metoprolol succinate 50 mg tablet,extended release 24 hr 50 mg PO BID Blood pressure #60 tabs 08/25/24
prasugrel 10 mg tablet 10 mg PO DAILY Blood clot prevention/tx #30 tabs 08/25/24
thiamine HCl (vitamin B1) 100 mg tablet 100 mg PO DAILY Supplement #20 tabs 08/25/24
Pending Results: No
--- NOTE | 2024-08-25 10:19 | W.PN.HOSP.TC ---
Today's Communication/Plan
-
Discharge
Assessment / Plan
Assessment / Plan
54-year-old female with chest pain. No chest pain this morning
CVS: S1-S2 normal
Chest: CTA B/L
Abdomen: Soft, NT / Bowel sounds present
Extremities: No edema
# Non-STEMI
Inferolateral ST changes on the EKG
Troponin peaked to 23
Aspirin, Losartan ,atorvastatin, Lopressor
ECHO with normal EF
Cardiac cath 08/24/23 with LAD stent placement.
Family history of cardiomyopathy Brother unexpectedly at age 35
# Hypertension with urgency
Continue Lopressor,Losartan
# Anxiety-as needed Xanax
# Obesity per BMI-On treatment
# Horseshoe kidney
# Diverticulosis
# Degenerative disc disease L4-L5 L5-S1
# Being worked up for white matter lesions in the brain. Patient is following up with [facility]
# Alcohol use 4-5 nights a week more with holidays. Add PPI, thiamine. Watch for withdrawal
# DVT prophylaxis-WAS ON HEPARIN, FOR DISCHARGE TOIDAY
# Full code
Discussed with nursing AT BED SIDE
More than 30 minutes spent in discharge including
Final examination of the patient
Summarizing hospital stay
Instructions for continuing care to all relevant caregivers
Preparation of discharge records, prescriptions, and referral forms
Total time spent (in minutes): over 30 min
Discussed needs uninterrupted Antiplatelets , also advised to cut back on alcohol .
Anticipated Discharge: Today
Subjective/Interval History
-
Date of Service: August 25, 2024
Objective Data
-
Labs:
Laboratory Results
08/25/24
04:36
WBC 6.8
Hgb 13.0
Hct 36.8 L
Plt Count 244
Sodium 138
Potassium 4.2
Chloride 105
Carbon Dioxide 26
BUN 13
Creatinine 0.8
Glucose 98
Calcium 9.0
Vital Signs:
Vital Signs
Temp Pulse Resp BP Pulse Ox
98.2 F 83 20 115/60 97
08/25/24 04:34 08/25/24 08:03 08/25/24 04:34 08/25/24 08:03 08/25/24 04:34
I&O
08/24/24 08/25/24 08/26/24
06:59 06:59 06:59
Intake Total 360 / 360 480 / 480 240 / 240
Balance 360 / 360 480 / 480 240 / 240
--- NOTE | 2024-08-25 11:26 | PTCARENOTE ---
Patient seen by cardiology and hospitalist and is ok for discharge home. Patient met with cardiac rehab nurse before leaving. Reviewed discharge instructions and new medications with the patient and she states her understanding. Patient discharged
home with her .
== END 2024-08-25 12:34 | disposition home or self-care (01) | DRG 322 ==
LOC: IVU 19:47
PROVIDERS: Emergency Medicine; Internal Medicine Interventional Cardiology; Nurse Practitioner; Physician Assistant Medical; ADMITTING PHYSICIAN Internal Medicine; ATTENDING PHYSICIAN Hospitalist; CONSULT PHYSICIAN Internal Medicine Cardiovascular Disease; EMERGENCY PHYSICIAN Student in an Organized Health Care Education/Training Program; FAMILY PHYSICIAN Student in an Organized Health Care Education/Training Program
PROC: 4A023N7 Measurement of Cardiac Sampling and Pressure, Left Heart, Percutaneous Approach (ICD-10-PCS; 2024-08-24)
PROC: B240ZZ3 Ultrasonography of Single Coronary Artery, Intravascular (ICD-10-PCS; 2024-08-24)
PROC: B2111ZZ Fluoroscopy of Multiple Coronary Arteries using Low Osmolar Contrast (ICD-10-PCS; 2024-08-24)
PROC: 027034Z Dilation of Coronary Artery, One Artery with Drug-eluting Intraluminal Device, Percutaneous Approach (ICD-10-PCS; 2024-08-24)
DX: I21.4 Non-ST elevation (NSTEMI) myocardial infarction (principal); I16.0 Hypertensive urgency; Z87.891 Personal history of nicotine dependence; I25.10 Atherosclerotic heart disease of native coronary artery without angina pectoris; E66.9 Obesity, unspecified; Z68.27 Body mass index [BMI] 27.0-27.9, adult; F41.9 Anxiety disorder, unspecified; I10 Essential (primary) hypertension
CPT/HCPCS: 80048; 80053; 80061; 83036; 84484; 84703; 85025; 85027; 85347; 85610; 85730; 92978; 93005; 93306; 93458; 96374; 99152; 99153; 99291; C1725; C1753; C1769; C1874; C1894; C9600; Q9967

== ENCOUNTER → 2024-09-06 06:31 | Outpatient (REF) | payer OTHER, SELFPAY | LOC: WDC 06:31 | PROVIDERS: ATTENDING PHYSICIAN Specialist; FAMILY PHYSICIAN Student in an Organized Health Care Education/Training Program | DX: Z12.31 Encounter for screening mammogram for malignant neoplasm of breast (principal) | CPT/HCPCS: 77063; 77067 ==

== ENCOUNTER 2024-10-19 08:41 | Outpatient (RCR) | payer OTHER, SELFPAY | END 2024-10-19 23:59 | disposition home or self-care (01) | LOC: CRHB 08:41 | PROVIDERS: ATTENDING PHYSICIAN Internal Medicine Cardiovascular Disease; FAMILY PHYSICIAN Student in an Organized Health Care Education/Training Program | DX: I21.4 Non-ST elevation (NSTEMI) myocardial infarction (principal); I25.10 Atherosclerotic heart disease of native coronary artery without angina pectoris; Z95.5 Presence of coronary angioplasty implant and graft | CPT/HCPCS: G0422; G0423 ==

== ENCOUNTER 2024-10-22 06:59 | Emergency (ER) | payer OTHER, SELFPAY ==
[2024-10-22] VITALS (7 sets, daily range): BP systolic 96–110; BP diastolic 46–75
--- NOTE | 2024-10-22 07:47 | ED.GENMED ---
History of Present Illness
General
Chief Complaint: Chest Pain
Source: patient
Exam Limitations: none
Time Seen by Provider: 10/22/24 07:14
History of Present Illness
History of Present Illness:
54yoF with a history of coronary artery disease s/p PCI presenting for evaluation of chest discomfort. Symptoms initially started 4 days ago with feeling off. She started to have a sensation in her chest while at cardiac rehab 3 days ago. She
reports an intermittent discomfort in the left side of her chest. The discomfort feels different each time. She states she sometimes feels a fluttering and sometimes it feels like a tingling sensation. Other times, she just 'feels it there.' She
denies any overt pain. The sensation has been constant since she woke up this morning around 5:30am. She denies any specific pattern to her symptoms. Nothing seems to make the pain better or worse. She is otherwise asymptomatic and denies any
shortness of breath, leg swelling, dizziness, syncope. Of note, patient's blood pressure was 96/70 at cardiac rehab 3 days ago and was 94 systolic this morning at home. She called her finishing machine tender and was told to go to the ED if her symptoms
persisted. She follows with Dr. Palmer and has an appointment with her finishing machine tender in 2 days. She had an NSTEMI in August of this year. Cardiac catheterization on 08/24/24 revealed a 70-80% hazy mid LAD stenosis and stent was placed.
Past History
Past History
ED Past Medical History: None
ED Past Surgical History: None
Phy Exam
General Physical Exam
General Presentation: well appearing and no apparent distress
General age: appears stated age
General Skin: warm and dry
General Habitus: normal
General Mental: alert
ENT Exam
ENT Exam: normocephalic
Cardiovascular Exam
Cardiovascular Exam: regular rate/rhythm, no edema, no murmur and normal peripheral pulses (2+ radial pulses bilaterally)
Pulmonary Exam
Pulmonary Exam: lungs clear, no respiratory distress, no rales, no crackles and no rhonchi
Neurological Exam
Neurological Exam: alert
[place] Coma Scale
Eye Opening: Spontaneous
Verbal Response: Oriented
Motor Response: Obeys Commands
GCS Total Score: 15
Skin Exam
Skin Exam: normal color and warm/dry
Psychiatric Exam
Psychiatric Exam: normal mood/affect
Scores
Heart Score for Chest Pain Patients
STEMI patient?: No
History: Slightly or Non-Suspicious
ECG: Normal
Age: >45 - <65 years
Risk Factors: >/= 3 Risk Factors or History of CAD
Troponin: </= Normal Limit
Heart Score for Chest Pain Patients: 3
Heart Score Risk: 2.5% MACE over next 6 weeks
Course
Orders/Labs/Results
Orders:
Orders
10/22/24 07:12
Electrocardiogram (*1) Urgent
Reason for Study: Chest Pain
EKG- Treatment ONCE
10/22/24 07:46
Cardiac Monitoring- Treatment ONCE
CR Chest - 2 Views Urgent
Comment:
Reason For Exam: CP
10/22/24 08:23
Complete Blood Count/With Diff Urgent
Comprehensive Metabolic Panel Urgent
Magnesium Urgent
TSH Urgent
Troponin I Urgent
10/22/24 09:37
EKG- Treatment ONCE
10/22/24 10:30
Electrocardiogram (*1) Urgent
Reason for Study: Chest Pain
10/22/24 10:38
Troponin I Urgent
Abnormal Lab Results
10/22/24
08:23
RBC 4.18 L 10^6/uL
(4.20-5.40)
Hct 36.1 L %
(37.0-47.0)
BUN 20 H mg/dl
(7-17)
10/22/24 08:23
10/22/24 08:23
Vital Signs
Initial and Last Documented VS:
Initial Vital Signs
Temp Pulse Resp BP Pulse Ox
98.0 F 89 16 101/74 98
10/22/24 07:09 10/22/24 07:09 10/22/24 07:09 10/22/24 07:09 10/22/24 07:09
Last Documented Vital Signs
Temp Pulse Resp BP Pulse Ox
98.0 F 90 28 109/63 100
10/22/24 07:09 10/22/24 11:24 10/22/24 11:24 10/22/24 11:24 10/22/24 11:24
MDM/Problems Addressed
Differential Diagnosis Includes:
54yoF here with chest discomfort. C/o intermittent fluttering and tingling sensation x 3 days. Hx of CAD s/p PCI. VSS. Patient is well-appearing no acute distress. Exam is reassuring. Differential diagnosis includes but is not limited to:
Arrhythmia, ACS, thyroid dysfunction, electrolyte abnormality
Initial ED plan: Check cardiac labs, magnesium, TSH, EKG and chest x-ray. Will place on cardiac nurse practitioner.
*EKG
Interpreted by ED Provider?: Yes
EKG Intrepretation Date: 10/22/24
Heart Rate: 85
Rate: normal
Rhythm: sinus
[place]: normal axis
Interval: normal interval
QRS Pattern: normal QRS
Ischemia: no ischemia
*Critical Care Note
Total Time (30-74mins, 75-104mins- exclusive of procedures): Not Applicable
Update Note
Update Note:
Labs unremarkable including normal electrolytes and TSH. EKG shows normal sinus rhythm without ischemic changes and troponin within normal limits. Chest x-ray is clear. Repeat EKG/troponin unchanged. No telemetry events throughout ED stay.
Patient is stable for discharge. She has an appointment with her finishing machine tender scheduled in 2 days. ED return precautions discussed. Patient in agreement with plan and was discharged in stable condition.
ED Attending Note
-
Portions of this chart may have been created with voice recognition software.� Occasional wrong word or��sound alike� substitutions may have occurred due to the inherent limitations of voice recognition software.
Discharge Plan
Departure
Patient Disposition: Home (Routine Discharge)
Date of Disposition: 10/22/24
Time of Disposition: 11:28
Patient with high blood pressure during this ER visit?: No
Discharge Problem:
Discomfort in chest, Palpitations
Instructions: Palpitations
Prescriptions:
No Action
alprazolam [Xanax] 0.5 mg Tablet
0.5 mg PO HSPRN PRN (Reason: sleep)
atorvastatin 80 mg Tablet
80 mg PO QPM Qty: 30 0RF
losartan 25 mg Tablet
25 mg PO DAILY Qty: 30 0RF
aspirin 81 mg Tablet,Chewable
81 mg PO DAILY Qty: 0 0RF
prasugrel HCl 10 mg Tablet
10 mg PO DAILY Qty: 30 0RF
metoprolol succinate 50 mg Tablet Extended Release 24 Hr
50 mg PO BID Qty: 60 0RF
thiamine HCl (vitamin B1) 100 mg Tablet
100 mg PO DAILY Qty: 20 0RF
therapeutic multivitamin Tablet
1 tab PO DAILY Qty: 0 0RF
cholecalciferol (vitamin D3) [Vitamin D3] 25 mcg (1,000 unit) Tablet
25 mcg PO DAILY Qty: 0 0RF
Zepbound 10 mg/0.5 mL Pen Injector
10 mg SC MO Qty: 0 0RF
famotidine [Pepcid] 20 mg tablet
20 mg PO DAILY Qty: 30 0RF
Referrals:
UNKNOWN - PT DOES,NOT KNOW [Family Provider] -
Activity Restrictions/Additional Instructions:
Please follow-up with your finishing machine tender on Tuesday as previously scheduled. Return to the ER with any new or worsening symptoms.
Interventions
Interventions:
*Risk Screen - Suicide Last Done: 10/22/24 07:09
*General Assessment Last Done: 10/22/24 08:57
*Neglect/Abuse Screening Last Done: 10/22/24 07:09
ED- Fall Risk Assessment Last Done: 10/22/24 08:57
*ED COVID-19 Vaccine History Last Done: 10/22/24 08:57
*Nursing Disposition Last Done: 10/22/24 11:55
ED- Cardiac Assessment Last Done: 10/22/24 08:55
Discharge Date and Time
Discharge Date/Time: 10/22/24 11:55
Print Language: MAURITANIAN
[2024-10-22 08:40] LABS: % Basophils 0.7 % (0-2); % Eosinophils 1.9 % (0-6); % Immature Granulocytes 0.3 % (0-0.5); % Lymphocytes 23.5 % (20.5-51.1); % Monocytes 4.3 % (1.7-9.3); % Neutrophils 69.3 % (42.2-75.2); Absolute Eosinophils 0.1 10^3/uL (0-0.7); Absolute Lymphocytes 1.4 10^3/uL (1.2-3.4); Absolute Monocytes 0.3 10^3/uL (0.1-0.6); Hematocrit 36.1 % (37.0-47.0); Hemoglobin 12.4 g/dL (12.0-16.0); Mean Corp Hgb Conc. 34.3 g/dL (33.0-37.0); Mean Corpuscular Hgb 29.7 pg (27.0-31.0); Mean Corpuscular Volume 86.4 fL (81.0-99.0); Mean Platelet Volume 9.4 fL (7.4-10.4); Nucleated Red Blood Cells % 0 %; Platelet Count 227 10^3/uL (130-400); Red Blood Cell Count 4.18 10^6/uL (4.20-5.40); Red Cell Dist. Width 12.5 % (11.5-14.5); White Blood Cell Count 5.8 10^3/uL (4.8-10.8)
[2024-10-22 08:44] LABS: ALT (SGPT) 29 U/L (0-35); AST (SGOT) 26 U/L (14-36); Albumin 4.4 g/dl (3.5-5.0); Alkaline Phosphatase 78 U/L (38-126); Blood Urea Nitrogen 20 mg/dl (7-17); Calcium 9.2 mg/dl (8.4-10.2); Carbon Dioxide 30 mmol/L (22-30); Chloride 102 mmol/L (98-107); Glucose 93 mg/dl (70-99); Potassium 4.7 mmol/L (3.5-5.1); Sodium 139 mmol/L (135-145); Total Bilirubin 0.7 mg/dl (0.2-1.3); Total Protein 6.9 g/dl (6.3-8.2); eGFR > 60.00
[2024-10-22 08:56] LABS: Troponin I < 0.012 ng/ml
[2024-10-22 09:16] LABS: TSH 0.79 uIU/ml (0.47-4.68)
[2024-10-22 11:12] LABS: Troponin I < 0.012 ng/ml
== END 2024-10-22 11:55 | disposition home or self-care (01) ==
LOC: EMR 06:59
PROVIDERS: Physician Assistant; EMERGENCY PHYSICIAN Emergency Medicine
DX: R07.89 Other chest pain (principal); R00.2 Palpitations; I25.10 Atherosclerotic heart disease of native coronary artery without angina pectoris; I25.2 Old myocardial infarction; Z95.5 Presence of coronary angioplasty implant and graft
CPT/HCPCS: 99285; 71046; 80053; 83735; 84443; 84484; 85025; 93005

== ENCOUNTER → 2024-11-22 07:24 | Outpatient (REF) | payer OTHER, SELFPAY | LOC: HWRCS 07:24 | PROVIDERS: ATTENDING PHYSICIAN Physician Assistant Medical; FAMILY PHYSICIAN Student in an Organized Health Care Education/Training Program | DX: R07.9 Chest pain, unspecified (principal); I25.2 Old myocardial infarction | CPT/HCPCS: 78452; 93017; A9500 ==